=== PATIENT | male | born 1980 | race Caucasian/White ===

== ENCOUNTER 2021-12-08 15:18 | Emergency (ER) | payer BC, OTHER ==
[2021-12-08 16:05] VITALS: BP 122/84; PULSE 104; RESP 20; TEMP 98.2; BMI 29.7
[2021-12-08] MEDS ORDERED: SODIUM CHLORIDE 1,000 ML IV ONE (17:19)
[2021-12-08] MEDS ORDERED: MECLIZINE HCL 25 MG TABLET (FP) PO ONE (17:21)
[2021-12-08] MEDS ORDERED: MECLIZINE HCL 25 MG TABLET (FP) ONE (17:53)
[2021-12-08 19:35] LABS: BASO % 0.4 % (0-2.0); EOS % 2.2 % (0-4.5); HEMATOCRIT 46.3 % (35.4-49); HEMOGLOBIN 15.4 GM/dL (11.7-16.9); LYMPH % 30.1 % (8-40); MCH 30.5 pg (25.7-33.7); MCHC 33.3 g/dl (32.0-35.9); MEAN CELL VOLUME 91.6 fl (80-96); MEAN PLT VOLUME 9.3 fl (7.5-11.1); MONO % 8.9 % (3.8-10.2); NEUT % 58.4 % (42.8-82.8); PLATELET COUNT 276 10^3/uL (134-434); RBC 5.05 M/mm3 (4.00-5.60); RDW 13.6 % (11.9-15.9); WHITE BLOOD COUNT 8.6 K/mm3 (4.0-10.0)
[2021-12-08 19:49] LABS: ACTIVATED PTT 36.3 SECONDS (25.2-36.5)
[2021-12-08 19:50] LABS: CALCIUM 9.5 mg/dL (8.5-10.1)
[2021-12-08 19:51] LABS: ALBUMIN 4.2 g/dl (3.4-5.0); BLOOD UREA NITROGEN 15.2 mg/dL (7-18)
[2021-12-08 19:55] LABS: BILIRUBIN,TOTAL 0.3 mg/dL (0.2-1); TOT PROT 6.9 g/dl (6.4-8.2)
[2021-12-08 20:01] LABS: INR 0.96 (0.83-1.09)
== END 2021-12-08 20:21 | disposition home or self-care (01) ==
LOC: JER 15:18
PROC: 3E0337Z Introduction of Electrolytic and Water Balance Substance into Peripheral Vein, Percutaneous Approach (ICD-10-PCS; principal; 2021-12-08)
DX: R42 Dizziness and giddiness (principal)
CPT/HCPCS: 0241U-QW; 36415; 70450-TC; 71045-TC-FY; 80053; 80061; 84443; 85025; 85610; 85730; 93005; 93010; 99285-25